=== PATIENT | male | born 1995 | race American Indian/Alaskan Native ===

== ENCOUNTER 2021-11-30 16:24 | Emergency (ER) | payer SELFPAY ==
[2021-11-30] MEDS ORDERED: ONDANSETRON 4 MG/2 ML INJ IV ONE (16:39)
[2021-11-30] MEDS ORDERED: SODIUM CHLORIDE 0.9% 1000 ML 1,000 ML IV ONE (16:39)
[2021-11-30] MEDS ORDERED: fentaNYL 100 MCG/2 ML INJ IV ONE (16:39)
[2021-11-30] MEDS ORDERED: ceFAZolin/NS 1 GM/50 ML 1 GM/50 ML BAG IV ONE (16:41)
[2021-11-30] MEDS ORDERED: TETANUS,DIPH,PERTUSS(ACELL) VACCINE 0.5 ML SYRINGE IM ONE (16:41)
--- NOTE | 2021-11-30 17:16 | Cat Scan Report ---
CT head/brain wo con INDICATION: Trauma. TECHNIQUE: CT head. All CT scans at this location are performed using CT dose reduction for ALARA by means of automated exposure control. COMPARISON: None. FINDINGS: Intracranial: Holley-white matter differentiation is maintained. No intracranial hemorrhage. No extra a xial collection. No hydrocephalus. No herniation. Sinuses: Paranasal sinuses and mastoid air cells are essentially clear. Orbits: Globes are intact. Calvarium: No acute fracture. IMPRESSION: 1. No acute intracranial abnormality. Signer Name: Artemio Beltrán MD Signed: 11/30/2021 5:12 PM Workstation Name: [id number]
--- NOTE | 2021-11-30 17:29 | Cat Scan Report ---
CT cervical spine wo con INDICATION / CLINICAL INFORMATION: 26 years Male; Trauma. TECHNIQUE: Axial CT images of the cervical spine were obtained. Sagittal and coronal reformatted images were pr oduced. All CT scans at this location are performed using CT dose reduction for ALARA by means of aut omated exposure control. COMPARISON: None available. FINDINGS: POST-SURGICAL CHANGES: None. ALIGNMENT: There is no significant spondylolisthesis or scoliosis of the cervical spine. VERTEBRAE: There is no CT evidence of acute fracture of the cervical spine. INTRAVERTEBRAL DISCS: The intervertebral disc spaces are fairly well-maintained without CT evidence o f significant bony spinal stenosis. PARASPINAL SOFT TISSUES: No prevertebral soft tissue fluid collections are identified. ADDITIONAL FINDINGS: None. IMPRESSION: 1. There is no CT evidence of acute fracture of the cervical spine. Signer Name: Andres Guerin MD Signed: 11/30/2021 5:25 PM Workstation Name: [id number]
--- NOTE | 2021-11-30 17:45 | Cat Scan Report ---
CT CHEST WITH CONTRAST INDICATION / CLINICAL INFORMATION: Trauma. TECHNIQUE: Axial CT images were obtained through the chest after opaque 350, 100 cc IV contrast. All CT scans at this location are performed using CT dose reduction for ALARA by means of automated expos ure control. COMPARISON: None available. FINDINGS: HEART: No significant abnormality. CORONARY ARTERY CALCIFICATION: None. THORACIC AORTA: No significant abnormality. MEDIASTINUM / KINA: No significant abnormality. PLEURA: No pleural effusion. No pneumothorax. LUNGS: No acute air space or interstitial disease. ADDITIONAL FINDINGS: None. UPPER ABDOMEN: No significant abnormality. SKELETAL SYSTEM: No significant abnormality. IMPRESSION: No acute traumatic injury. Signer Name: Loyd Mehta MD Signed: 11/30/2021 5:40 PM Workstation Name: [id number]
[2021-11-30 18:08] LABS: Basophils % (Auto) 0.5 % (0.0-1.8); Eosinophils % (Auto) 0.3 % (0.0-4.3); Hematocrit 41.9 % (35.5-45.6); Lymphocytes # (Auto) 1.2 K/mm3 (1.2-5.4); Lymphocytes % (Auto) 31.8 % (13.4-35.0); Mean Corpuscular HGB Conc 33 % (32-34); Mean Corpuscular Volume 93 fl (84-94); Monocytes # (Auto) 0.3 K/mm3 (0.0-0.8); Monocytes % (Auto) 8.6 % (0.0-7.3); Platelet Count 152 K/mm3 (140-440); Red Blood Count 4.49 M/mm3 (3.65-5.03)
[2021-11-30 18:19] LABS: Alanine Aminotransferase 19 units/L (7-56); Albumin 4.6 g/dL (3.9-5); BUN/Creatinine Ratio 10; Blood Urea Nitrogen 11 mg/dL (9-20); Calcium 8.6 mg/dL (8.4-10.2); Hemolysis Index 9
--- NOTE | 2021-11-30 19:16 | Emergency Department Report ---
ED General Adult HPI - General Chief complaint: Head Injury Stated complaint: HEAD INJURY PUI?: No Time Seen by Provider: 11/30/21 16:39 Source: patient Mode of arrival: Wheelchair Limitations: No Limitations - History of Present Illness Initial comments: Patient was managed independently by the mid level below , I was available for consult but i wasn't directly involved in the care of this patient Kaitlynn Cummings MD -: Sudden, hour(s) Location: head, face, chest Severity scale (0 -10): 10 Quality: aching Consistency: constant Improves with: none Worsens with: none Associated Symptoms: headaches. denies: denies other symptoms, confusion, chest pain, cough Treatments Prior to Arrival: none - Related Data Previous Rx's Medication Instructions Recorded Last Taken Type Acetaminophen/Codeine [Tylenol #3] 1 tab PO Q6H PRN #12 tab 02/21/[address] [Voltaren Dr] 75 mg PO Q12H #20 tablet 02/21/13 Unknown Rx HYDROcodone/APAP 5-325 [[place] 1 each PO Q6HR PRN #15 tablet 07/08/15 Unknown Rx 5-325 mg TAB] Ibuprofen [Motrin 800 MG tab] 800 mg PO Q8HR PRN #30 tablet 07/08/15 Unknown Rx Allergies Allergy/AdvReac Type Severity Reaction Status Date / Time No Known Allergies Allergy Verified 07/08/15 14:37 ED Review of Systems ROS: Stated complaint: HEAD INJURY Other details as noted in HPI Constitutional: denies: chills, fever Eyes: denies: eye pain, eye discharge, vision change ENT: denies: ear pain, throat pain Respiratory: denies: cough, shortness of breath, wheezing Cardiovascular: denies: chest pain, palpitations Endocrine: no symptoms reported Gastrointestinal: denies: abdominal pain, nausea, diarrhea Genitourinary: denies: urgency, dysuria Musculoskeletal: denies: back pain, joint swelling, arthralgia Skin: denies: rash, lesions Neurological: denies: headache, weakness, paresthesias Psychiatric: denies: anxiety, depression Hematological/Lymphatic: denies: easy bleeding, easy bruising ED Past Medical Hx - Past Medical History Previous Medical History?: No Hx Hypertension: No - Surgical History Past Surgical History?: No - Social History Smoking Status: Current Every Day Smoker Substance Use Type: None - Medications Home Medications: Home Medications Medication Instructions Recorded Confirmed Last Taken Type Acetaminophen/Codeine [Tylenol #3] 1 tab PO Q6H PRN #12 tab 02/21/[address] [Júnior Barrera] 75 mg PO Q12H #20 tablet 02/21/13 Unknown Rx HYDROcodone/APAP 5-325 [[place] 1 each PO Q6HR PRN #15 tablet 07/08/15 Unknown Rx 5-325 mg TAB] Ibuprofen [Motrin 800 MG tab] 800 mg PO Q8HR PRN #30 tablet 07/08/15 Unknown Rx ED Physical Exam - General Limitations: No Limitations General appearance: alert, in no apparent distress - Head Head exam: Present: normocephalic, other (facial abrasions) - Eye Eye exam: Present: normal appearance - ENT ENT exam: Present: mucous membranes moist - Neck Neck exam: Present: normal inspection - Respiratory Respiratory exam: Present: normal lung sounds bilaterally. Absent: respiratory distress - Cardiovascular Cardiovascular Exam: Present: regular rate, normal rhythm. Absent: systolic murmur, diastolic murmur, rubs, gallop - GI/Abdominal GI/Abdominal exam: Present: soft, normal bowel sounds - Rectal Rectal exam: Present: deferred - Extremities Exam Extremities exam: Present: normal inspection - Back Exam Back exam: Present: normal inspection - Neurological Exam Neurological exam: Present: alert, oriented X3 - Psychiatric Psychiatric exam: Present: normal affect, normal mood - Skin Skin exam: Present: erythema, abrasion. Absent: rash ED Course Vital Signs 11/30/21 11/30/21 11/30/21 16:31 16:46 17:00 Temperature 98.2 F Pulse Rate 89 61 57 L Respiratory 20 10 L 11 L Rate Blood Pressure 134/91 140/81 140/81 O2 Sat by Pulse 100 Oximetry 11/30/21 11/30/21 11/30/21 17:24 17:30 17:31 Temperature Pulse Rate 63 69 Respiratory 16 15 72 H Rate Blood Pressure 140/81 118/69 O2 Sat by Pulse 98 Oximetry 11/30/21 11/30/21 11/30/21 17:46 18:00 18:16 Temperature Pulse Rate 64 58 L 49 L Respiratory 16 14 13 Rate Blood Pressure 140/81 140/81 122/72 O2 Sat by Pulse 97 98 99 Oximetry ED Medical Decision Making - Lab Data Result diagrams: 11/30/21 17:22 11/30/21 17:22 - Radiology Data Radiology results: report reviewed, image reviewed - Medical Decision Making trauma CTs, tetanus abx and pain control , Critical care attestation.: If time is entered above; I have spent that time in minutes in the direct care of this critically ill patient, excluding procedure time. ED Disposition Clinical Impression: Fall, Head injury Disposition: HOME / SELF CARE / HOMELESS Is pt being admited?: No Does the pt Need Aspirin: No Condition: Stable Referrals: PRIMARY CARE,MD [Primary Care Provider] - 3-5 Days
[2021-11-30 19:58] LABS: Color,Urine Colorless (Yellow)
[2021-11-30 20:02] LABS: Amphetamine Screen,Urine PRESUMPTIVE NEGATIVE; Benzodiazepines Screen,Urine PRESUMPTIVE NEGATIVE; Cannabinoid Screen,Urine PRESUMPTIVE POSITIVE; Cocaine Screen,Urine PRESUMPTIVE NEGATIVE; Methadone Screen,Urine PRESUMPTIVE NEGATIVE; Opiate Screen,Urine PRESUMPTIVE NEGATIVE
[2021-11-30 20:07] LABS: INR 1.02 (0.87-1.13)
[2021-11-30 20:13] LABS: WBC,Urine < 1.0 /HPF (0.0-6.0)
[2021-11-30] MEDS ORDERED: IBUPROFEN 800 MG TAB PO ONE (20:14)
[2021-11-30 20:52] VITALS: BP 119/72
[2021-11-30] MEDS ORDERED: MUPIROCIN 2% OINT 22 GM TP ONE (21:00)
== END 2021-11-30 20:52 | disposition home or self-care (01) ==
LOC: ED 16:24
DX: S09.90XA Unspecified injury of head, initial encounter (principal); F17.200 Nicotine dependence, unspecified, uncomplicated; R79.1 Abnormal coagulation profile; Z79.899 Other long term (current) drug therapy; W18.39XA Other fall on same level, initial encounter; Y93.89 Activity, other specified; Y92.89 Other specified places as the place of occurrence of the external cause; Y99.8 Other external cause status
CPT/HCPCS: 36415; 70450; 71260; 72125; 80053; 80307; 81001; 82550; 84484; 85025; 85610; 90471; 90715; 96365; 96375; 99284; J0690; J2405; J3010; J7030; Q9967; 80320; G0480